=== PATIENT | female | born 1965 | race Caucasian/White ===

== ENCOUNTER 2018-10-04 20:55 | Emergency (ER) | payer OTHER, SELFPAY ==
[2018-10-04 20:55] VITALS: BP 160/80; PULSE 110; RESP 22; TEMP 35.8; O2SAT 95; BMI 29.2
[2018-10-04 21:44] VITALS: BP 137/80; PULSE 89; RESP 24; O2SAT 99
--- NOTE | 2018-10-04 21:54 | EKG12_ITS ---
Test Reason : Blood Pressure : / mmHG Vent. Rate : 091 BPM Atrial Rate : 091 BPM P-R Int : 140 ms QRS Dur : 076 ms QT Int : 370 ms P-R-T Axes : 055 070 047 degrees QTc Int : 455 ms Normal sinus rhythm Biatrial enlargement Abnormal ECG Confirmed by TEOFILO SAHU, SATINDER ([id number]), purchasing expeditor MARTI ANDERSON ([id number] on 10/08/2018 1:30:40 PM Referred By: TL Confirmed By:SATINDER RED MD
--- NOTE | 2018-10-04 21:55 | CT_ITS ---
STUDY: CTA CHEST REASON FOR EXAM: Female, 53 years old. Shortness of breath with exertion. Weakness. Dizziness. Lightheadedness. Leg weakness for 2 weeks. RADIATION DOSAGE (If Supplied By Facility): CTDIvol = ( 9.85 ) mGy, DLP = ( 341.24 ) mGycm TECHNIQUE: The examination was performed with the intravenous administration of 75ML IV Isovue 300. Post-processing of the angiographic images was performed, with multiplanar reformation and 3D reconstruction. Individualized dose optimization techniques were used for this CT. COMPARISON: None. FINDINGS: Normal enhancement of the main pulmonary artery and right and left pulmonary arteries. Normal enhancement of the bilateral peripheral pulmonary arteries. There is no demonstrated pulmonary embolism. There is prominence of the main pulmonary arteries without peripheral pulmonary vascular congestion, suggesting pulmonary hypertension. Normal thoracic aorta and visualized great vessels. There is no demonstrated aortic dissection. There is mild right heart enlargement. Normal pericardium. Normal mediastinum. Normal hilar regions. Normal visualized trachea and bronchi. The lungs are well expanded. Normal pulmonary parenchyma. Normal pleura. Normal chest wall structures. Normal osseous structures. Normal visualized upper abdomen. CT/CTA Chest W/WO Contrast IMPRESSION: 1. No evidence of pulmonary embolus. 2. No aortic dissection or aneurysm. 3. Findings consistent with pulmonary hypertension. 4. Enlarged right heart. 5. No acute pulmonary disease. Electronically Signed: Kong Corrales DO at 23:23 EDT Tel [phone], Service support ,
[2018-10-04 22:45] LABS: International Normalized Ratio 1.2; Prothrombin Time (Protime)PT. 14.6 SECONDS (11.7-14.9)
[2018-10-04 22:46] LABS: Partial Thromboplast Time 26.6 Seconds (24.1-36.2)
--- NOTE | 2018-10-04 22:46 | ED.VIS.GEN ---
History of Present Illness Chief Complaint: Dizziness Informant: Patient Onset: Weeks - few Narrative: Patient presents for lightheaded symptoms for the past few weeks. Complains of exertional dyspnea. No chest tightness. No chest pains. A week ago had a syncopal episode. She reports getting more sweaty with exertion than normal. No previous similar symptoms in the past. No recent vomiting or diarrhea. No urinary symptoms. No upper respiratory symptoms. She did drive to [employer] [address] 2 weeks ago. States that transient bilateral leg swelling at that time. There is no leg pains. Patient states does not have any past medical history. Patient postmenopausal. Denies any rectal bleeding. Normal bowels. Prior similar symptoms: No Past Medical History - Allergies and Home Meds Allergies/Adverse Reactions: Allergies aspirin Adverse Reaction (Verified 10/04/18 20:58) Vomiting Primary Care Physician: Care Physician,No Primary [Primary Care Provider] - Smoking Status: Never smoker Review of Systems General: Denies: Chills, Fever, Sweats Eyes: Denies: Visual changes - bilaterally, Diplopia ENT: Denies: Rhinorrhea, Sore throat Cardiovascular: Denies: Chest pain, Palpitations Respiratory: Reports: Dyspnea, Dyspnea on exertion. Denies: Cough Gastrointestinal: Denies: Abdominal pain, Nausea, Vomiting, Diarrhea, Melena, Hematochezia Genitourinary: Denies: Dysuria, Hematuria, Frequency Musculoskeletal: Denies: Back pain, Extremity Pain Skin: Denies: Rash, Wounds Neurological: Denies: Headache, Weakness, Numbness Physical Exam Vital Signs/Narrative: Vital Signs Temp Pulse Resp BP Pulse Ox 10/04/18 21:44 89 24 H 137/80 H 99 10/04/18 20:55 96.5 F L 110 H 22 H 160/80 H 95 Inital Vital Signs reviewed: Yes General: Well nourished, Well developed, No Acute Distress Head: Normocephalic, Atraumatic Eyes: Perrl, EOMI ENT: Moist mucous membranes, No rhinorrhea Neck: Supple, Nontender Cardiovascular: Regular rate, Regular rhythm, No murmurs, - - HR 90 Respiratory: No distress, CTA bilaterally, Chest nontender Abdomen: Soft, Nontender, Nondistended, Normal bowel sounds Back: Nontender, Normal Inspection Extremities: Nontender, Edema, - - Minimal bilateral lower extremity edema, no calf or medial thigh tenderness. Skin: Normal color, No rash Neurological: Alert, Oriented x3, Cranial nerves II-XII grossly intact, Normal Strength, Normal Sensation Psychological: Normal affect, Normal Mood Diagnostic/Tx/Re-eval Abnormal Lab Results 10/04/18 10/04/18 10/04/18 22:24 22:24 22:24 WBC 9.0 RBC 4.64 Hgb 13.2 Hct 39.6 MCV 85.3 MCH 28.4 MCHC 33.3 RDW 13.0 RDW Differential 40.1 Plt Count 275 MPV 11.4 Immature Gran % (Auto) 0.200 Neut % (Auto) 71.4 H Lymph % (Auto) 21.3 Barber % (Auto) 6.4 Eos % (Auto) 0.4 Baso % (Auto) 0.3 Absolute Neuts (auto) 6.4 Absolute Lymphs (auto) 1.91 Total Counted Not Reportable PT 14.6 INR 1.2 APTT 26.6 Sodium 136 Potassium 4.6 Chloride 104 Carbon Dioxide 24.0 Anion Gap 8 BUN 32 H Creatinine 0.90 Estim Creat Clear Calc 66.54 Est GFR (MDRD) Af Amer 85 Est GFR (MDRD) Non-Af 70 BUN/Creatinine Ratio 35.4 H Glucose 120 H Calcium 10.3 H Troponin I < 0.015 CTA chest: No PE, signs per radiology had concerns for pulmonary hypertension. - EKG Initial EKG Interpretation: Sinus Rhythm - Sinus rate of 91, no ST changes, t wave inv V2. Biatrial enlargement. - Medical Decision Making Patient vital signs stable, history reports progressive exertional dyspnea a week ago causing a syncopal episode. She had travel 2 weeks ago. Moderate risk Wells criteria for potential PE concerns. Work-up initiated. Labs normal for hemoglobin and electrolytes troponin. EKG was sinus with biatrial enlargement. Her CTA was negative for PE however did note concerns for pulmonary hypertension per radiology. Patient is non-smoker. She denies any known snoring at night. Blood pressure is stable. With findings, discussed with patient she will likely need a sleep study as an outpatient further evaluation. Patient understands and agrees with plan. ED Disposition - Plan for ED Patient: Disposition: Home or Assisted Living Diagnosis: Syncope, Pulmonary hypertension Instructions: Pulmonary Hypertension, Causes of Syncope Referrals: Care Physician,No Primary [Primary Care Provider] - Vonnie Jonas DO [NON-STAFF] - 3-5 Days Additional Instructions: Cardiac work-up negative. CTA chest negative for PE. However there was noted concerns for pulmonary hypertension. EKG noted by atrial enlargement. He may need sleep study as an outpatient observation for further evaluation. Follow-up with Dr. Jonas.
[2018-10-04 22:50] LABS: Absolute Lymphocyte Count 1.91 X10^3/ul (0.83-4.51); Absolute Neutrophil Count 6.4 X10^3/uL (2.0-7.7); Basophil# 0.03 X10^3/uL; Basophil% 0.3 % (0-1); Eosinophil# 0.04 X10^3/uL; Eosinophils% 0.4 % (0-5); Hematocrit 39.6 % (37-47); Hemoglobin 13.2 g/dl (12.0-15.0); Lymphocyte # 1.91 X10^3/ul (4.0); Lymphocyte % 21.3 % (19-41); Mean Corp Hgb Conc 33.3 g/gl (32-36); Mean Corpuscular Hgb 28.4 pg (27.0-32.0); Mean Corpuscular Volume 85.3 fL (81-99); Mean Platelet Vol. 11.4 fl (6.2-12.0); Monocyte# 0.57 X10^3/uL; Monocyte% 6.4 % (0-10); Neutrophil % 71.4 % (47-70); Platelet Count 275 K/mm3 (150-450); RBC Distribution Width SD 40.1 fl (35.1-43.9); Red Blood Count 4.64 M/mm3 (4.2-5.4)
[2018-10-04 22:53] LABS: POSITIVE COUNT NO; POSITIVE DIFFERENTIAL NO; POSITIVE MORPHOLOGY NO
[2018-10-04 22:55] LABS: Anion Gap 8 (5-15); BUN 32 mg/dL (7-18); BUN/Creat Ratio 35.4 RATIO (10-20); Calcium,Total 10.3 mg/dL (8.5-10.1); Chloride 104 mmol/L (98-107); EST Glomerular Filtration Rate 70 mL/min (>60); Est Glom Filt Rate - Afr Amer 85 mL/min (>60); Estimated Creatinine Clearance 66.54 ml/min; Glucose 120 mg/dL (74-106); Potassium 4.6 mmol/L (3.5-5.1); Sodium Level 136 mmol/L (136-145)
[2018-10-04 23:40] VITALS: BP 152/79; PULSE 89; RESP 22; O2SAT 100
[2018-10-05 00:03] VITALS: BP 125/79; PULSE 944; RESP 17
== END 2018-10-05 00:11 | disposition home or self-care (01) ==
PROVIDERS: Emergency Provider Emergency Medicine
DX: R55 Syncope and collapse (principal); I27.20 Pulmonary hypertension, unspecified; Z78.0 Asymptomatic menopausal state
CPT/HCPCS: 71275; 80048; 84484; 85025; 85610; 85730; 93005; 99285; Q9967; A4216

== ENCOUNTER → 2019-01-18 08:08 | Outpatient (CLI) | payer OTHER, SELFPAY ==
[2018-11-15 11:09] VITALS: BMI 27.6
--- NOTE | 2019-01-18 08:09 | ECHOD_ITS ---
Reason For Study: Dyspnea/SOB Procedure This was a 2D Doppler, Color Flow transthoracic echocardiogram. Technically difficult apical images. Patient refused IV for bubble study and Definity even after being explained benefits. Exam performed in department. Left Ventricle Normal LV size. The estimated ejection fraction is 60 %. Normal diastology for age. No regional wall motion abnormalities noted. Right Ventricle Normal RV size. Normal systolic function. Atria Normal left atrium. Normal right atrium. No doppler evidence for ASD. Mitral Valve There is no mitral valve stenosis. Trivial mitral valve insufficiency. Tricuspid Valve There is no tricuspid stenosis. Mild tricuspid valve insufficiency. Pulmonary artery systolic pressure is 45 mmHg. PA pressure could be underestimated due to insufficient TR envelope. Aortic Valve Trisinus/trileaflet aortic valve. There is no aortic stenosis. No aortic valve insufficiency. Pulmonic Valve There is no pulmonic valvular stenosis. No pulmonic valve insufficiency. Great Vessels Normal aortic root. Pericardium/Pleural No pericardial effusion. MMode/2D Measurements & Calculations LVIDd: 3.6 cm IVSd: 1.2 cm Ao root diam: 2.8 cm LVIDs: 2.2 cm LVPWd: 1.1 cm LA dimension: 3.5 cm RVDd: 3.5 cm FS: 37.2 % LAV(MOD-bp): 66.0 ml LA A4 area: 21.2 cm2 RA A4 area: 17.2 cm2 LAV(MOD-bp) Indexed: 37.2 ml/m2 LAV(MOD-sp2): 64.7 ml LAV(MOD-sp4): 66.5 ml Time Measurements MV dec time: 0.18 sec Doppler Measurements & Calculations MV E max aden: 139.7 cm/sec Lat Peak E' Aden: 19.8 cm/sec Med Peak E' Aden: 10.1 cm/sec MV A max aden: 85.7 cm/sec E/E' lat: 7.1 E/E' med: 13.8 MV E/A: 1.6 MV V2 max: 142.7 cm/sec MV P1/2t max aden: 136.9 cm/sec Ao V2 max: 161.6 cm/sec MV max P.1 mmHg MV P1/2t: 55.7 msec Ao max P.4 mmHg MV V2 mean: 74.1 cm/sec MV dec slope: 719.6 cm/sec2 Ao V2 mean: 91.1 cm/sec MV mean P.7 mmHg MVA(P1/2t): 3.9 cm2 Ao mean P.0 mmHg MV V2 VTI: 27.0 cm Ao V2 VTI: 27.2 cm LV V1 max: 118.0 cm/sec PA V2 max: 132.3 cm/sec TR max aden: 305.4 cm/sec LV V1 max P.6 mmHg TR max P.3 mmHg LV V1 mean P.2 mmHg LV V1 mean: 68.4 cm/sec LV V1 VTI: 20.4 cm Interpretation Summary The estimated ejection fraction is 60 %. Normal diastology for age. Mild tricuspid valve insufficiency. Pulmonary artery systolic pressure is 45 mmHg. PA pressure could be underestimated due to insufficient TR envelope Ordering Physician: Edgardo Benoit Referring Physician: Edgardo Benoit Performed By: Lee Welch RCS
--- NOTE | 2019-01-19 08:38 | PFT ---
INTRODUCTION: The patient is a 53-year-old female that presents for pulmonary function studies secondary to a diagnosis of shortness of breath. Respiratory therapy reports good patient effort. Bronchodilators were used during testing. INTERPRETATION: Forced expiration spirometry demonstrates the presence of a moderate large airways obstructive ventilatory defect. There was technically no significant response to aerosolized bronchodilators, based upon strict ATS criteria. Nevertheless, the patient did have a partial response to aerosolized bronchodilators along with a significant mid flow response. Spirograms are of good quality and plateau gradually indicating slow emptying of the lungs. Body plethysmography was performed and reveals a decrease TLC to 4.16 L, 80% of predicted, indicative of a mild restrictive ventilatory impairment. Diffusing capacity by single breath CO is within normal limits at 74% of predicted. IMPRESSION: Irreversible moderate mixed ventilatory defect with preserved diffusing capacity.
== END ==
PROVIDERS: Referring Provider Internal Medicine Critical Care Medicine; Visit Provider Internal Medicine Critical Care Medicine
DX: Q24.9 Congenital malformation of heart, unspecified (principal); R06.02 Shortness of breath; R06.09 Other forms of dyspnea
CPT/HCPCS: 93306; 94060; 94726; 94729

== ENCOUNTER → 2019-02-12 11:31 | Outpatient (CLI) | payer OTHER, SELFPAY ==
[2018-11-15 11:09] VITALS: BMI 27.6
[2019-02-12 11:54] VITALS: PULSE 100; PULSE 114; PULSE 116; PULSE 117; PULSE 123; PULSE 124; PULSE 137; PULSE 97; O2SAT 97; O2SAT 98
--- NOTE | 2019-02-13 10:02 | PCM.PSN.6M ---
PSN 6 Minute Walk Test - 6 Minute Walk Test 6 Minute Walk Test: 6 Minute Walk Test PSN:6-Minute Walk Test Start: 02/12/19 11:54 Freq: Status: Active Protocol: [id number] Document 02/12/19 11:54 FR (Rec: 02/12/19 11:58 FR [id number]) 6 Minute Walk Test Date Performed 02/12/19 Time Performed 11:30 Height 5 ft 5 in Weight: 140 lb Weight in Pounds 140.[address]: Edgardo Benoit Assistive device used: None Pre-test Oxygen Delivery Method Room Air Pulse Ox (%) 98 Pulse Rate (60-100 beats/min) 97 Dyspnea Sofía Scale (0-10) 0 Exertion Sofía Scale (6-20) 6 1st minute Oxygen Delivery Method Room Air Pulse Ox (%) 97 Pulse Rate (60-100 beats/min) 117 H 2nd minute Oxygen Delivery Method Room Air Pulse Ox (%) 98 Pulse Rate (60-100 beats/min) 114 H 3rd minute Oxygen Delivery Method Room Air Pulse Ox (%) 98 Pulse Rate (60-100 beats/min) 116 H 4th minute Oxygen Delivery Method Room Air Pulse Ox (%) 98 Pulse Rate (60-100 beats/min) 124 H 5th minute Oxygen Delivery Method Room Air Pulse Ox (%) 97 Pulse Rate (60-100 beats/min) 123 H 6th minute Oxygen Delivery Method Room Air Pulse Ox (%) 98 Pulse Rate (60-100 beats/min) 137 H Dyspnea Sofía Scale (0-10) 1 Exertion Sofía Scale (6-20) 7 Post-test Oxygen Delivery Method Room Air Pulse Ox (%) 97 Pulse Rate (60-100 beats/min) 100 Full Laps Walked 22 Partial Lap, Number of Tiles Walked 30 Total Distance Walked (ft) 1328 - Interpretation Interpretation: The patient ambulated 1328 feet over the course of 6 minutes beginning on room air without assistive devices or breaks. Pretesting oxygen saturation was noted to be 98% on room air. With ambulation, the brianda oxygen saturation was 97%. The patient did become progressively tachycardic with exertion. This would be consistent with a cardiac limitation to exercise tolerance. - Recommendations Recommendations: There is no indication for the use of supplemental oxygen at this time.
== END ==
PROVIDERS: Referring Provider Internal Medicine Critical Care Medicine; Visit Provider Internal Medicine Critical Care Medicine
DX: Q24.9 Congenital malformation of heart, unspecified (principal); R06.09 Other forms of dyspnea
CPT/HCPCS: 94618